=== PATIENT | female | born 1950 ===

== ENCOUNTER → 2019-01-12 | Outpatient (CLI) | payer OTHER | END | disposition home or self-care (01) | LOC: MRI 13:00 | DX: M25.562 Pain in left knee (principal); M17.0 Bilateral primary osteoarthritis of knee | CPT/HCPCS: 73721 ==

== ENCOUNTER 2019-01-30 12:19 | Outpatient (CLI) | payer OTHER | END 2019-01-30 12:24 | disposition home or self-care (01) | LOC: RAD 12:19 | DX: M72.2 Plantar fascial fibromatosis (principal) ==